=== PATIENT | female | born 2000 | race Caucasian/White ===

== ENCOUNTER 2020-10-29 12:01 | Outpatient (CLI) | payer BC, SELFPAY ==
--- NOTE | ~2020-10-29 | XR_ITS ---
EXAMINATION: XR shoulder LT min 2V EXAM DATE: 10/29/2020 12:13 INDICATION: M25.519 - Pain in unspecified shoulder. TECHNIQUE: The following left shoulder projections obtained: frontal projection with internal rotatio n, frontal projection with external rotation, Grashey, and axillary (4+ views). There is no prior st udy for comparison. FINDINGS: No evidence of left shoulder rotator cuff calcific tendinosis. Unremarkable left glenoh umeral and acromioclavicular joints. There are no acute fractures or dislocations identified. There is no subcutaneous gas. The soft tissue is unremarkable. There are no radiopaque foreign bodies. IMPRESSION: 1. Unremarkable left shoulder exam. Reviewed, dictated and finalized at location B. ET DEVELOPMENT TRAINER
== END 2020-10-29 12:02 ==
PROVIDERS: PCP Family Medicine; Visit Provider Physician Assistant
DX: M25.519 Pain in unspecified shoulder (principal)
CPT/HCPCS: 73030

== ENCOUNTER 2020-12-08 22:01 | Emergency (ER) | payer BC, SELFPAY ==
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
[2020-12-08 22:15] VITALS: BP 119/75; PULSE 88; RESP 20; TEMP 36.3; O2SAT 99
[2020-12-08 22:33] LABS: Pregnancy On Board Control Positive; Urine Pregnancy Test Negative
--- NOTE | 2020-12-08 23:21 | ED.HEATRA ---
HPI - Head Injury General Chief complaint: Head Injury Stated complaint: possible concussion Time Seen by Provider: 12/08/20 23:20 Source: patient Mode of arrival: ambulatory Limitations: no limitations History of Present Illness HPI Narrative: This young woman comes in stating that she was doing gymnastics and fell and hit her head and neck from a height of 3-4 foot with all of her head and neck. She says she had blurry vision after this and a pounding headache. This was also associated with nausea. This happened this morning about 10am and she has not felt well since then. Ibuprofen at home has not helped. Complaint: head injury Mechanism of Injury: fall Place: home Loss of Consciousness: no Location of injury: occipital Severity: moderate Quality: dull and throbbing Radiation: neck Other Injuries: none Associated symptoms: denies other symptoms Related Data Home Medications Medication Instructions Recorded Confirmed No Home Medications 12/08/20 12/08/20 Allergies Allergy/AdvReac Type Severity Reaction Status Date / Time No Known Allergies Allergy Verified 12/08/20 22:20 Review of Systems Eyes: Eyes: Reports no additional eye complaints ENT: Reports system reviewed and no additional complaints, except as documented Cardiovascular: Cardiovascular: Reports no additional cardiovascular complaints Respiratory: Respiratory: Reports no additional respiratory complaints Gastrointestinal: Gastrointestinal: Reports no additional gastrointestinal complaints Genitourinary: Genitourinary: Reports no additional female genitourinary complaints Musculoskeletal: Musculoskeletal: Reports no additional musculoskeletal complaints Integumentary/Breasts: Skin/Breast: Reports system reviewed and no additional complaints, except as docu Neurologic: Reports system reviewed and no additional complaints, except as documented Psychiatric: Psychiatric: Reports no additional psychiatric complaints Endocrine: Endocrine: Reports no additional endocrine complaints Hematologic/Lymphatic: Hematologic/Lymphatic: Reports no additional hematologic/lymphatic complaints Allergic/Immunologic: Allergic/Immunologic: Reports no additional allergic/immunologic complaints [facility] [place] Past Medical History Medical History (Updated 12/09/20 @ 00:00 by [facility] Danadia) No significant past medical history Surgical History Surgical History (Updated 12/08/20 @ 23:28 by Efren Bragg MD) No significant past surgical history Family History Family History Grandparent Depression Family history of glaucoma Father Hypertension Family history of elevated blood lipids Family history of cardiovascular disease Other Diabetes mellitus Social History Social History Smoking status: Light tobacco smoker Second hand tobacco smoke exposure: Yes Alcohol intake: never Gender identity (if verbalized by the patient): Female Exam Const: General: no acute distress and alert Orientation/consciousness: patient oriented x3 HENMT: Head: normal to inspection Ears: external ears normal and TM's normal bilaterally General nose exam: Normal external nose present Face and sinus: normal facial exam Mouth: Yes moist mucous membranes Throat: posterior oropharynx normal Eyes: Conjunctivae: conjunctivae normal Neck: Neck: normal visual inspection and no lymphadenopathy Other: she has difficulty touching her chin to her chest and complains of pain in her posterior neck Chest: Chest palpation & inspection: normal inspection of the chest Resp: Effort & Inspection: normal respiratory effort Auscultation: clear to auscultation bilaterally Cardio: Rate: regular rate Rhythm: regular rhythm GI: GI Palp: Yes Soft to palpation (non tender) Back/Spine/Pelvis: Back: no CVA tenderness Skin: General skin exam: normal color Neuro: Gener
[2020-12-08] MEDS: DIVALPROEX SODIUM ER 500 MG TAB.24H PO (23:25)
[2020-12-08] MEDS: KETOROLAC (*BKC) 60 MG/2 ML VIAL IM (23:30)
[2020-12-08] MEDS: BACLOFEN 10 MG TABLET 20 MG PO (23:31)
--- NOTE | 2020-12-08 23:36 | PC.NURSE ---
pt resting per cot. on cell phone.
[2020-12-08 23:38] VITALS: BP 113/85; PULSE 74; RESP 20; TEMP 36.9; O2SAT 98
== END 2020-12-08 23:45 | disposition home or self-care (01) ==
PROVIDERS: Emergency Provider Emergency Medicine
DX: S09.90XA Unspecified injury of head, initial encounter (principal); W19.XXXA Unspecified fall, initial encounter
CPT/HCPCS: 70450; 72125; 81025; 96372; 99283; 99284; A9270; J1885

== ENCOUNTER 2023-01-06 12:47 | Outpatient (CLI) | payer BC, SELFPAY ==
[2023-01-06 14:11] LABS: Influenza A QL RT-PCR Negative (Negative); Influenza B QL RT-PCR Negative (Negative); RSV RNA, RT-PCR Negative (Negative); SARS-CoV-2 RNA PCR Negative
== END 2023-01-06 12:48 | disposition home or self-care (01) ==
LOC: ANHLAB 12:49
PROVIDERS: PCP Family Medicine; Visit Provider Physician Assistant
DX: R50.9 Fever, unspecified (principal); Z20.822 Contact with and (suspected) exposure to COVID-19
CPT/HCPCS: 87637

== ENCOUNTER → 2023-07-01 10:33 | Outpatient (CLI) | payer BC, SELFPAY | PROVIDERS: PCP Family Medicine; Visit Provider Physician Assistant | DX: M25.562 Pain in left knee (principal) | CPT/HCPCS: 73564 ==